=== PATIENT | female | born 2005 | race Caucasian/White ===

== ENCOUNTER 2023-08-08 15:39 | Emergency (ER) | payer OTHER ==
[~2023-08-08 15:39] MED LIST: IBU800 M1 PO; NATURAL IRON65 MG; PRENATAL TABLET PO; TYLENOL 325MG325 MG PO
[2023-08-08 15:52] VITALS: BP 126/79; TEMP 98.5
[2023-08-08] MEDS ORDERED: NORCO 325 MG-51 TAB PO (16:27)
[2023-08-08] MEDS ORDERED: AMOXICILLIN 50500 MG PO (16:27)
[2023-08-08 16:35] VITALS: PULSE 95
== END 2023-08-08 16:43 | disposition home or self-care (01) ==
LOC: COL.ER 15:39
DX: O99.612 Diseases of the digestive system complicating pregnancy, second trimester (principal); K01.1 Impacted teeth; Z3A.22 22 weeks gestation of pregnancy; Z88.6 Allergy status to analgesic agent